=== PATIENT | female | born 1980 | race Caucasian/White ===

== ENCOUNTER 2016-09-17 06:25 | Emergency (ER) | payer BC ==
--- NOTE | 2016-09-17 06:35 | PDOC ---
History of Present Illness - General Chief Complaint: Sore Throat Stated Complaint: STREP THROAT Time Seen by Provider: 09/17/16 06:35 History Source: Patient Exam Limitations: No Limitations - History of Present Illness Initial Comments: 09/17/16 06:51 This is a 36-year-old female who comes in complaining of sore throat. Patient has history of strep pharyngitis. Patient said that she has fever and bodyaches and no other symptoms patient denies any cough, congestion and upper respiratory tract symptoms. PAST MEDICAL HISTORY: no significant history PAST SURGICAL HISTORY: no significant history FAMILY HISTORY: no pertinant history SOCIAL HISTORY: Pt lives with family and is employed. MEDICATIONS: reviewed ALLERGIES: As per nursing notes Review of Systems General: No fevers or chills, no weakness, no weight loss HEENT: No change in vision. No sore throat,. No ear pain CardioVascular: No chest pain or shortness of breath Respiratory:No cough, or wheezing. Gastrointestinal: no nausea, vomitting, diarrhea or constipation, No rectal bleeding Genitourinary: No dysuria, hematuria, or frequency Musculoskeletal: No joint or muscle pain or swelling Neurologic: No headache, vertigo, dizziness or loss of consciousness Psychiatric: nor depression Skin: No rashes or easy bruising Endocrine: no increased thirst or abnormal weight change Allergic: no skin or latex allergy All other systems reviewed and normal GENERAL: The patient is awake, alert, and fully oriented, in no acute distress. HEAD: Normal with no signs of trauma. THROAT: Tonsils are enlarged, red with exudate. Neck is supple with submandibular lymphadenopathy. EYES: Pupils equal, round and reactive to light, extraocular movements intact, sclera anicteric, conjunctiva clear. EXTREMITIES: Normal range of motion, no edema. NEUROLOGICAL: Normal speech, normal gait. PSYCH: Normal mood, normal affect. SKIN: Warm, Dry, normal turgor, no rashes or lesions noted. Assessment and plan: This is a 36-year-old female with history of strep pharyngitis in the past who has exudative ferry did not tightness with submandibular lymphadenopathy. Patient meets criteria for strep pharyngitis and was treated with Keflex that she is ALLERGIC to penicillin and azithromycin. Patient discharged home will follow-up with her primary care doctor as needed Past History - Past Medical History Allergies/Adverse Reactions: Allergies Allergy/AdvReac Type Severity Reaction Status Date / Time azithromycin [From Zithromax] Allergy Verified 09/17/16 06:36 Penicillins Allergy Verified 09/17/16 06:29 Home Medications: Ambulatory Orders Cephalexin Monohydrate [Keflex -] 500 mg PO BID #20 capsule 09/17/16 Ibuprofen [Advil -] 400 mg PO ONCE PRN 09/17/16 *DC/Admit/Observation/Transfer Diagnosis at time of Disposition: Strep pharyngitis - Discharge Dispostion Disposition: HOME Condition at time of disposition: Stable Admit: No Decision to Admit order Date/Time: 09/17/16 06:53 Take Keflex one tablet twice a day for 10 days Return to the emergency department immediately with ANY new, persistent or worsening symptoms. Continue any medications as previously prescribed by your physician. You should follow up with your primary doctor as soon as possible regarding today's emergency department visit. . Please make sure your doctor reviews the results of your emergency evaluation. Thank you for coming to the Emergency Department today for your care. It was a pleasure to see you today. Please note that your evaluation is INCOMPLETE until you follow-up with your doctor. - Prescriptions Prescriptions: Cephalexin Monohydrate [Keflex -] 500 mg PO BID #20 capsule - Referrals Referrals: STAFF,NOT ON [Primary Care Provider] - - Patient Instructions Printed Discharge Instructions: Strep Throat - Post Discharge Activity Work/School Note: Back to Work
[2016-09-17 06:40] VITALS: BP 99/63; PULSE 97; TEMP 98.1; BMI 23.8
[2016-09-17] MEDS ORDERED: CEPHALEXIN MONOHYDRATE 500 MG CAPSULE (UD) PO ONE (06:48)
[2016-09-17] MEDS ORDERED: CEPHALEXIN MONOHYDRATE 500 MG CAPSULE (UD) ONE (06:49)
--- NOTE | 2016-09-18 09:35 | PDOC ---
Patient Follow-up (Call Back) - Post ED Follow - Up Condition at time of discharge: Stable Disposition at time of original discharge: HOME Reason for Call Back: Abnwl. Microbiology - Disposition Additional Instructions/Notes: Follow-up note written because of culture results. Patient's throat culture from September 17 is now positive for strep. Patient was treated with Keflex. No change in treatment is required.
== END 2016-09-17 07:06 | disposition home or self-care (01) ==
LOC: FER 06:25
DX: J02.0 Streptococcal pharyngitis (principal)
CPT/HCPCS: 87070; 87430; 99281-25

== ENCOUNTER 2016-09-19 18:15 | Emergency (ER) | payer BC ==
[2016-09-19 18:22] VITALS: BP 96/69; PULSE 80; TEMP 98.4; BMI 24.6
[2016-09-19] MEDS ORDERED: LIDOCAINE VISCOUS 2% ORAL/TOP 20 ML UNIT-DOSE CUP MM ONE (19:17)
[2016-09-19] MEDS ORDERED: IBUPROFEN 600 MG TABLET (FP) PO ONE ×2 (19:17→19:29)
--- NOTE | 2016-09-19 19:18 | PDOC ---
History of Present Illness - History of Present Illness Initial Comments: 09/19/16 19:23 The patient is a 36 year old female, with no significant past medical history, who presents to the emergency department for revisit with persistent sore throat 2 days after starting Keflex. The patient reports being diagnosed with strep throat in the ED 2 days ago, however, states her throat pain has not improved. She states she has been using lozenges with temporary relief of sore throat. She denies chest pain, shortness of breath, headache and dizziness. She denies fever, chills, nausea, vomit, diarrhea and constipation. She denies dysuria, frequency, urgency and hematuria. Allergies: NKDA Social history: Denies toxic habits <Joan Ricks - Last Filed: 09/19/16 19:36> <Alex Schroeder - Last Filed: 09/20/16 04:02> - General Chief Complaint: Sore Throat Stated Complaint: PERSISTENT THROAT PAIN Time Seen by Provider: 09/19/16 19:17 Past History <Joan Ricks - Last Filed: 09/19/16 19:36> - Past Medical History Other medical history: DENIES - Psycho/Social/Smoking Cessation Hx Anxiety: No Suicidal Ideation: No Smoking History: Never smoked Information on smoking cessation initiated: No Hx Alcohol Use: (occasional) <Alex Schroeder - Last Filed: 09/20/16 04:02> - Past Medical History Allergies/Adverse Reactions: Allergies Allergy/AdvReac Type Severity Reaction Status Date / Time azithromycin [From Zithromax] Allergy Verified 09/19/16 18:17 Penicillins Allergy Verified 09/19/16 18:17 Home Medications: Ambulatory Orders Cephalexin Monohydrate [Keflex -] 500 mg PO BID #20 capsule 09/17/16 Ibuprofen [Advil -] 400 mg PO ONCE PRN 09/17/16 Lidocaine 2% Viscous Oral [Xylocaine 2% Viscous Oral -] 20 ml PO Q6H PRN #200 ud 09/19/16 Review of Systems - Review of Systems Able to Perform ROS?: Yes Comments:: 09/19/16 19:23 CONSTITUTIONAL: Absent: fever, chills, diaphoresis, generalized weakness, malaise, loss of appetite HEENT: (+) throat pain, Absent: rhinorrhea, nasal congestion, throat swelling, difficulty swallowing, mouth swelling, ear pain, eye pain, visual Changes CARDIOVASCULAR: Absent: chest pain, syncope, palpitations, irregular heart rate, lightheadedness , peripheral edema RESPIRATORY: Absent: cough, shortness of breath, dyspnea with exertion, orthopnea, wheezing, stridor, hemoptysis GASTROINTESTINAL: Absent: abdominal pain, abdominal distension, nausea, vomiting, diarrhea, constipation, melena, hematochezia GENITOURINARY: Absent: dysuria, frequency, urgency, hesitancy, hematuria, flank pain, genital pain MUSCULOSKELETAL: Absent: myalgia, arthralgia, joint swelling SKIN: Absent: rash, itching, pallor HEMATOLOGIC/IMMUNOLOGIC: Absent: easy bleeding, easy bruising, lymphadenopathy, frequent infections ENDOCRINE: Absent: unexplained weight gain, unexplained weight loss, heat intolerance, cold intolerance NEUROLOGIC: Absent: headache, focal weakness or paresthesias, dizziness, unsteady gait, seizure, mental status changes, bladder or bowel incontinence PSYCHIATRIC: Absent: anxiety, depression, suicidal or homicidal ideation, hallucinations. <Joan Ricks - Last Filed: 09/19/16 19:36> *Physical Exam - Vital Signs Last Vital Signs Temp Pulse Resp BP Pulse Ox 98.4 F 80 18 96/69 99 09/19/16 18:15 09/19/16 18:15 09/19/16 18:15 09/19/16 18:15 09/19/16 18:15 - Physical Exam Comments: 09/19/16 19:24 GENERAL: Well developed, well nourished. Awake and alert. No acute distress. HEENT: (+) Oropharynx is midlly erythematous. White coating on tongue. Normocephalic, atraumatic. PERRLA, EOMI. No conjunctival pallor. Sclera are non-icteric. Moist mucous membranes. NECK: Supple. Full ROM. No JVD. Carotid pulses 2+ and symmetric, without bruits. No thyromegaly. No lymphadenopathy. CARDIOVASCULAR: Regular rate and rhythm. No murmurs, rubs, or gallops. Distal pulses are 2+ and symmetric. PULMONARY: No evidence of respiratory distress. Lungs clear to auscultation bilaterally. No wheezing, rales or rhonchi ABDOMINAL: Soft. Non-tender. Non-distended. No rebound or guarding. No organomegaly. Normoactive bowel sounds. MUSCULOSKELETAL Normal range of motion at all joints. No bony deformities or tenderness. No CVA tenderness. EXTREMITIES: No cyanosis. No clubbing. No edema. No calf tenderness. SKIN: Warm and dry. Normal capillary refill. No rashes. No jaundice. NEUROLOGICAL: Alert, awake, appropriate. Cranial nerves 2-12 intact. Normoreflexic in the upper and lower extremities. Normal speech. Gait is normal without ataxia. PSYCHIATRIC: Cooperative. Good eye contact. Appropriate mood and affect. <Joan Ricks - Last Filed: 09/19/16 19:36> - Vital Signs Last Vital Signs Temp Pulse Resp BP Pulse Ox 98.4 F 80 18 96/69 99 09/19/16 18:15 09/19/16 18:15 09/19/16 18:15 09/19/16 18:15 09/19/16 18:15 <Alex Schroeder - Last Filed: 09/20/16 04:02> Medical Decision Making - Medical Decision Making 09/20/16 04:02 pharyngitis supportive care <Alex Schroeder - Last Filed: 09/20/16 04:02> *DC/Admit/Observation/Transfer - Attestations Scribe Attestion: 09/19/16 19:25 Documentation prepared by Joan Ricks, acting as medical intern for Alex Schroeder MD <Joan Ricks - Last Filed: 09/19/16 19:36> <Alex Schroeder - Last Filed: 09/20/16 04:02> Diagnosis at time of Disposition: Strep pharyngitis - Discharge Dispostion Disposition: HOME Condition at time of disposition: Good - Prescriptions Prescriptions: Lidocaine 2% Viscous Oral [Xylocaine 2% Viscous Oral -] 20 ml PO Q6H PRN #200 ud PRN Reason: Sore Throat
[2016-09-19] MEDS ORDERED: LIDOCAINE VISCOUS 2% ORAL/TOP 100 ML BOTTLE ONE (19:19)
== END 2016-09-19 20:02 | disposition home or self-care (01) ==
LOC: FER 18:15
DX: J02.0 Streptococcal pharyngitis (principal)
CPT/HCPCS: 99282-25